=== PATIENT | female | born 1950 | race American Indian/Alaskan Native ===

== ENCOUNTER 2017-01-07 10:58 | Outpatient (CLI) | payer MEDICARE ==
--- NOTE | 2017-01-07 14:50 | Mammography Report ---
BILATERAL DIGITAL SCREENING MAMMOGRAM with CAD: 01/07/17 10:58:00 CLINICAL: Routine screening. COMPARISON:12/30/15 and 12/22/14 FINDINGS: The breasts are almost entirely fatty. No mass, architectural distortion or suspicious calcifications. IMPRESSION: No mammographic evidence of malignancy. BI-RADS CATEGORY: 2 -- Benign RECOMMENDATION: Routine mammographic screening in one year. COMMENT: Patient follow-up letters are generated by our [employer] application.
== END 2017-01-07 10:59 | disposition home or self-care (01) ==
LOC: SPVWC 10:58
PROVIDERS: ATTEND Internal Medicine
DX: Z12.31 Encounter for screening mammogram for malignant neoplasm of breast (principal)
CPT/HCPCS: 77067; G0202

== ENCOUNTER 2018-01-08 11:15 | Outpatient (CLI) | payer MEDICARE ==
--- NOTE | 2018-01-08 15:04 | Mammography Report ---
BILATERAL DIGITAL SCREENING MAMMOGRAM with CAD: 01/08/18 11:15:00 CLINICAL: Routine screening. COMPARISON:01/07/17 FINDINGS: The breasts are almost entirely fatty.Numerous bilateral stable intraparenchymal lymph nodes. No mass, architectural distortion or suspicious calcifications. IMPRESSION: No mammographic evidence of malignancy. BI-RADS CATEGORY: 2 -- Benign RECOMMENDATION: Routine mammographic screening in one year. COMMENT: Patient follow-up letters are generated by our [employer] application.
== END 2018-01-08 11:16 | disposition home or self-care (01) ==
LOC: SPVWC 11:15
PROVIDERS: ATTEND Internal Medicine
DX: Z12.31 Encounter for screening mammogram for malignant neoplasm of breast (principal)
CPT/HCPCS: 77067

== ENCOUNTER 2018-10-21 11:26 | Outpatient (CLI) | payer MEDICARE ==
--- NOTE | 2018-10-21 12:07 | XRay Report ---
RIGHT SHOULDER 3 VIEWS Indication: RT SHOULDER PAIN Findings: There is no fracture or subluxation of the right shoulder. Severe glenohumeral joint osteoarthritis w ith narrowing of the joint space, subchondral geodes and a large inferior humeral osteophyte. Normal acromioclavicular joint. Normal soft tissues. IMPRESSION: Near glenohumeral joint osteoarthritis. Signer Name: Lawrence Isidro MD Signed: 10/21/2018 12:02 PM Workstation Name: [id number]
== END 2018-10-21 11:27 | disposition home or self-care (01) ==
LOC: SPVIMAG 11:26
PROVIDERS: ATTEND Internal Medicine
DX: M19.011 Primary osteoarthritis, right shoulder (principal)